=== PATIENT | male | born 1990 | race Caucasian/White ===

== ENCOUNTER 2021-08-03 18:02 | Emergency (ER) | payer OTHER ==
[~2021-08-03] VITALS: Ht 175.3 cm; Wt 127.0 kg
[2021-08-03 20:36] VITALS: BP 146/94
== END 2021-08-03 20:36 | disposition home or self-care (01) ==
LOC: ER 18:02
DX: S61.012A Laceration without foreign body of left thumb without damage to nail, initial encounter (principal); W26.0XXA Contact with knife, initial encounter; Y93.89 Activity, other specified; Y92.89 Other specified places as the place of occurrence of the external cause; Y99.8 Other external cause status